=== PATIENT | female | born 1955 | race Caucasian/White ===

== ENCOUNTER → 2017-04-03 | Outpatient (REF) | payer BC | LOC: M SFHCWAGY 15:14 | PROVIDERS: ATTEND Nurse Practitioner Family | DX: Z12.4 Encounter for screening for malignant neoplasm of cervix (principal) ==

== ENCOUNTER → 2017-04-03 | Outpatient (CLI) | payer BC ==
--- NOTE | 2017-04-03 15:49 | REPMRS ---
Patient History The patient states she had a clinical breast exam in 03/2017. Patient is postmenopausal. Family history of pancreatic cancer in mother. Digital Woman Screen Mammo: April 03, 2017 - Exam #: [id number] Bilateral CC and MLO view(s) were taken. Technologist: Karena Mccarthy, Technologist Prior study comparison: February 18, 2016, digital woman screen mammo performed at [facility]. January 08, 2015, digital woman screen mammo performed at [facility] to [facility]. FINDINGS: The breast tissue is heterogeneously dense. This may lower the sensitivity of mammography. There has been no change in the appearance of the mammogram from the prior studies. There is a moderate amount of residual fibroglandular tissue which is fairly symmetric. There is no interval development of dominant mass, areas of architectural distortion, or clustered microcalcification typical of malignancy. ASSESSMENT: BI-RADS/ACR category 1 mammogram. Negative. Recommendation Routine screening mammogram in 1 year (for women over age 40). This mammogram was interpreted with the aid of an FDA-approved computer-aided dectection system. Electronically Signed By: Ildefonso Tate MD 04/03/17 [id number]
== END ==
LOC: M WHC 14:40
PROVIDERS: ATTEND Nurse Practitioner Family
DX: Z12.31 Encounter for screening mammogram for malignant neoplasm of breast (principal)

== ENCOUNTER → 2018-04-04 | Outpatient (REF) | payer OTHER ==
[2018-04-06 14:15] LABS: HPV HYBRID CAPTURE II Negative (Negative)
== END ==
LOC: M SFHCWAGY 15:40
DX: Z12.4 Encounter for screening for malignant neoplasm of cervix (principal)

== ENCOUNTER → 2018-04-04 | Outpatient (CLI) | payer OTHER | LOC: M WHC 14:59 | DX: Z12.31 Encounter for screening mammogram for malignant neoplasm of breast (principal) | CPT/HCPCS: 77067 ==

== ENCOUNTER 2019-01-24 05:46 | Day surgery (SDC) | payer BC ==
[~2019-01-24] VITALS: Ht 157.5 cm; Wt 68.5 kg
[~2019-01-24 05:46] MED LIST: LEVO112T2 PO; LISI10TA4 PO; SERT-138 PO
--- NOTE | 2019-01-24 06:41 | ECGEPIP ---
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
[2019-01-24] MEDS ORDERED: BUPIVACAINE LIPOSOME/PF 1.3% 20ML VIAL (13.3MG/ML)(EXPAREL)(C9290 PER1MG) As Ordered ONE (06:44)
[2019-01-24] MEDS ORDERED: BUPIVACAINE HCL 0.25% 30 ML VIAL As Ordered ONE (06:44)
[2019-01-24] MEDS ORDERED: LR 1,000 ML IV ONE (07:00)
[2019-01-24] MEDS ORDERED: PROPOFOL 200 MG/20 ML VIAL As Ordered ONE (08:03)
[2019-01-24] MEDS ORDERED: KETOROLAC 60 MG/2 ML VIAL (J1885) As Ordered ONE (08:03)
[2019-01-24] MEDS ORDERED: ACETAMINOPHEN 1000MG 100ML IV BTL (OFIRMEV) (J0131 PER 10MG) As Ordered ONE (08:03)
[2019-01-24] MEDS ORDERED: ROCURONIUM BROMIDE 50 MG/5 ML VIAL As Ordered ONE ×3 (08:03→10:14)
[2019-01-24] MEDS ORDERED: dexameTHASONE 4 MG/ML 1ML VIAL (J1100) As Ordered ONE (08:03)
[2019-01-24] MEDS ORDERED: LIDOCAINE 2% INJ 100 MG/5 ML SDV (FOR ANES.) As Ordered ONE (08:03)
[2019-01-24] MEDS ORDERED: MIDAZOLAM INJ 2 MG/2 ML VIAL (J2250) As Ordered ONE (08:03)
[2019-01-24] MEDS ORDERED: fentaNYL 250 MCG/5 ML INJECTION (J3010) As Ordered ONE (08:03)
[2019-01-24] MEDS ORDERED: ONDANSETRON 4MG/2ML VIAL (J2405) As Ordered ONE (08:03)
[2019-01-24] MEDS ORDERED: ePHEDrine SULFATE 25 MG/5 ML(5MG/ML) SYRINGE As Ordered ONE (08:04)
[2019-01-24] MEDS ORDERED: LABETALOL HCL 100 MG/20 ML VIAL As Ordered ONE (08:42)
[2019-01-24] MEDS ORDERED: SUGAMMADEX SODIUM 500 MG/5 ML VIAL (BRIDION) As Ordered ONE (08:56)
[2019-01-24] MEDS: oxyCODONE 5MG TAB PO PRN ×2 (11:15→11:58)
[2019-01-24] MEDS ORDERED: ACETAMINOPHEN TAB 650MG DOSE (2X325MG) PO PRN (11:15)
[2019-01-24] MEDS ORDERED: METOCLOPRAMIDE INJ 10MG/2ML VIAL (J2765) IV PRN (11:15)
[2019-01-24] MEDS ORDERED: LR 1,000 ML IV SCH (11:15)
[2019-01-24] MEDS ORDERED: PROMETHAZINE INJ 25 MG/ML VIAL (J2550) IV PRN (11:15)
[2019-01-24] MEDS ORDERED: IBUPROFEN 600 MG TAB PO PRN (11:30)
[2019-01-24] MEDS: fentaNYL 100 MCG/2 ML INJECTION (J3010) IV PRN ×4 (11:35→11:50)
[2019-01-24 13:50] VITALS: BP 120/58
[2019-01-24] MEDS ORDERED: OXYC1TAB23 PO (15:06)
--- NOTE | 2019-01-26 14:12 | RO ---
DATE OF PROCEDURE: 01/24/2019 PREOPERATIVE DIAGNOSIS: Epigastric incisional hernia. POSTOPERATIVE DIAGNOSES: 1. Epigastric incisional hernia. 2. Umbilical hernia. PROCEDURES PERFORMED: 1. Robotic-assisted laparoscopic repair of epigastric incisional hernia. 2. Robotic-assisted laparoscopic suturing of small umbilical hernia defect. SURGEON: Dr. Dhillon ANESTHESIA: General. INDICATIONS FOR PROCEDURE: The patient is a 63-year-old woman who had undergone an open cholecystectomy many years ago through a short transverse epigastric. She has recently noticed a bulge in this area and examination confirmed protrusion along her scar. She is now for a robotic-assisted laparoscopic incisional hernia repair. OPERATIVE PROCEDURE The patient was brought to the operating room and placed supine on the operating table. She was placed under general endotracheal anesthesia. The patient's abdomen was prepped and draped in a sterile fashion. The initial entry into the abdomen was in the left upper quadrant. Local anesthesia was infiltrated and a short incision was made. A Veress needle was inserted and after positive hanging drop test the abdomen was insufflated with carbon dioxide gas. The 8 mm robotic trocar was inserted through the abdominal wall without difficulty. The laparoscope was placed. Initial examination showed some filmy adhesions of the omentum to the anterior abdominal wall beginning near the umbilicus and extending up along the midline to attach to the falciform ligament. The liver was partially seen and appeared normal. Visualized portions of the small and large bowel and stomach appeared normal. A second trocar was placed in the lateral midabdomen on the left and a third trocar was placed in the left lower quadrant. Patient cart was then docked from the patients right and the camera port was docked. Targeting took place on the epigastric area and a pair of cauterizing scissors was placed in arm four and arm two contained a bipolar cautery device. I then moved to the control console to proceed with the robotic portion of the procedure. The patient had previously been placed into a reverse Trendelenburg position and rolled slightly to the right. Proceeding robotically, the adhesions of the omentum to the anterior abdominal wall were taken down. As the umbilical area was exposed, two very small fascial defects, big enough to put the tip of the grasper into were identified at the umbilicus. Inspection in the epigastrium identified that there was a definite small fascial defect at the left and of her epigastric incision through which a frond of omentum protruded to the right side. The area was obscured initially by some of the falciform in this area. I therefore proceeded to dissect the peritoneum and preperitoneal fat off of the anterior abdominal wall beginning down by the umbilicus and extending up along the entire midline to the area overlying her prior incision. As the inner aspect of her incision was exposed, not only was there a definite small defect with protruding fat on the left, there was a more broad separation of the internal fascia on the right creating a weakness in this area. The preperitoneal fat was peeled away widely to expose this area for placement of the piece of mesh, but the tissue remained attached to the anterior abdominal wall. A 1-0 PDS Stratafix suture was then inserted into the abdomen and the fascia along her hernia was closed. I started at the point of her more distinct small fascial defect and then worked to the right suturing the separation of the fascia. Once this closure was completed, the suture was cut and the needle removed. A 9-cm round Parietex patch was selected for the mesh reinforcement. This was trimmed on both sides to create an approximately 6 x 9 cm patch, which was inserted. A 2-0 V-Loc suture was used. Initially the midpoint of the mesh was tacked over the closure of the fascia and this was then carried to the lateral aspect of the mesh and then continued as a continuous running circumferential suture at the edge of the mesh. I would note that the intra-abdominal pressure had been reduced to 8 mmHg when the hernia repair was begun. Once the mesh was sutured circumferentially, the suture was continued to reattach the preperitoneal fat of the falciform ligament over the mesh and carrying this up superiorly to suture the superior half of the preperitoneal fat in place. A 0 V-Loc suture was then inserted and this was used to take several bites through the small umbilical hernias to close these together and then was continued to reattach the preperitoneal fat over this area and then extending up to complete the closure of preperitoneal fat. Inspection showed no evidence of any bleeding. The robot was then undocked. The patient was returned to a flat position and the abdomen was deflated and the trocars were removed. The trocar sites were closed with buried Vicryl sutures and Steri-Strips. The patient tolerated the procedure well without apparent complication. The Parietex patch selected was a 9-cm round Parietex lot number [id number]. The patient was awakened in the operating room, extubated and moved to the recovery room in stable condition.
== END 2019-01-24 14:20 | disposition home or self-care (01) ==
LOC: M SDC 05:46
PROVIDERS: ATTEND Surgery
DX: K43.2 Incisional hernia without obstruction or gangrene (principal); K42.9 Umbilical hernia without obstruction or gangrene; I10 Essential (primary) hypertension; E03.9 Hypothyroidism, unspecified; F41.9 Anxiety disorder, unspecified; Z79.899 Other long term (current) drug therapy; Z87.891 Personal history of nicotine dependence; Z88.2 Allergy status to sulfonamides; Z88.0 Allergy status to penicillin
CPT/HCPCS: 49652; 93005; C1781; C9290; J0131; J1100; J1885; J2250; J2405; J3010

== ENCOUNTER → 2019-04-19 | Outpatient (CLI) | payer BC ==
[~2019-04-19] MED LIST changes: +OXYC1TAB23 PO
--- NOTE | 2019-04-19 14:42 | REPMRS ---
Patient History The patient states she had a clinical breast exam in 04/2019. Patient is postmenopausal. Family history of pancreatic cancer in mother. No Hormone Replacement Therapy 3D TOMOSYNTHESIS WAS PERFORMED. The [facility] lifetime risk for breast cancer is 6.6 %. Digital Woman Screen Mammo: April 19, 2019 - Exam #: [id number] Bilateral CC and MLO view(s) were taken. Technologist: Karena Mccarthy, Technologist Prior study comparison: April 04, 2018, bilateral digital woman screen mammo performed at [facility]. April 03, 2017, digital woman screen mammo performed at [facility]. FINDINGS: The breast tissue is heterogeneously dense. This may lower the sensitivity of mammography. There has been no change in the appearance of the mammogram from the prior studies. There is a moderate amount of residual fibroglandular tissue which is fairly symmetric. There is no interval development of dominant mass, areas of architectural distortion, or clustered microcalcification typical of malignancy. Assessment: BI-RADS/ACR category 1 mammogram. Negative Mammogram. Recommendation Routine screening mammogram in 1 year (for women over age 40). This mammogram was interpreted with the aid of an FDA-approved computer-aided dectection system. Electronically Signed By: Ildefonso Tate MD 04/19/19 [id number]
== END ==
LOC: M WHC 13:20
PROVIDERS: ATTEND Nurse Practitioner Family
DX: Z12.31 Encounter for screening mammogram for malignant neoplasm of breast (principal); Z78.0 Asymptomatic menopausal state

== ENCOUNTER 2019-05-13 13:19 | Emergency (ER) | payer OTHER, BC ==
[~2019-05-13] VITALS: Ht 157.5 cm; Wt 68.2 kg
--- NOTE | 2019-05-13 14:17 | REP ---
CT cervical spine: 05/13/2019. Indication: Cervical spine trauma. Comparison: None. Technique: Unenhanced axial CT images of the cervical spine were performed with coronal and sagittal reconstructions provided. Findings: There is no acute fracture, subluxation or dislocation. The visualized lungs are clear. The airway is patent. No acute post traumatic neck soft tissue abnormalities are detected. Impression: No acute post traumatic osseous injuries of the cervical spine. Electronically Signed by Sushant Pleitez DO 05/13/2019 02:08 P
[2019-05-13] MEDS ORDERED: NAPR-837 PO (15:28)
[2019-05-13] MEDS ORDERED: METH1TAB40 PO (15:28)
[2019-05-13 15:33] VITALS: BP 163/81
== END 2019-05-13 15:39 | disposition home or self-care (01) ==
LOC: M ED 13:19
DX: Z04.1 Encounter for examination and observation following transport accident (principal); S16.1XXA Strain of muscle, fascia and tendon at neck level, initial encounter; V43.52XA Car driver injured in collision with other type car in traffic accident, initial encounter; Y92.410 Unspecified street and highway as the place of occurrence of the external cause; Y93.89 Activity, other specified; Y99.8 Other external cause status; I10 Essential (primary) hypertension; E03.9 Hypothyroidism, unspecified; Z79.899 Other long term (current) drug therapy; Z79.890 Hormone replacement therapy; Z88.0 Allergy status to penicillin; Z88.2 Allergy status to sulfonamides

== ENCOUNTER → 2020-04-21 | Outpatient (REF) | payer BC ==
[~2020-04-21] MED LIST changes: +METH1TAB40 PO; +NAPR-837 PO
== END ==
LOC: M SFHCWAGY 18:24
PROVIDERS: ATTEND Nurse Practitioner Family
DX: Z12.4 Encounter for screening for malignant neoplasm of cervix (principal)

== ENCOUNTER → 2020-04-21 | Outpatient (CLI) | payer BC ==
--- NOTE | 2020-04-21 14:41 | REPMRS ---
Patient History The patient states she had a clinical breast exam in April 2020.Family history of pancreatic cancer in mother. No Hormone Replacement Therapy 3D TOMOSYNTHESIS WAS PERFORMED. [facility]%. YENSHABANAGlenn STEVE Dominick. Digital Woman Screen Mammo: April 21, 2020 - Exam #: [id number] Bilateral CC and MLO view(s) were taken. Technologist: Karly Lucero, Technologist Prior study comparison: April 19, 2019, bilateral digital woman screen mammo performed at [facility]. April 04, 2018, bilateral digital woman screen mammo performed at [facility]. FINDINGS: The breast tissue is heterogeneously dense. This may lower the sensitivity of mammography. There has been no change in the appearance of the mammogram from the prior studies. There is a moderate amount of residual fibroglandular tissue which is fairly symmetric. There is no interval development of dominant mass, areas of architectural distortion, or clustered microcalcification typical of malignancy. Assessment: BI-RADS/ACR category 1 mammogram. Negative Mammogram. Recommendation Routine screening mammogram in 1 year (for women over age 40). This mammogram was interpreted with the aid of an FDA-approved computer-aided dectection system. Electronically Signed By: Ildefonso Tate MD 04/21/20 [id number]
== END ==
LOC: M WHC 13:11
PROVIDERS: ATTEND Nurse Practitioner Family
DX: Z12.31 Encounter for screening mammogram for malignant neoplasm of breast (principal)

== ENCOUNTER → 2020-05-02 | Outpatient (CLI) | payer BC | LOC: M LABSMTC 11:40 | PROVIDERS: ATTEND Anesthesiology | DX: Z01.812 Encounter for preprocedural laboratory examination (principal); Z20.828 Contact with and (suspected) exposure to other viral communicable diseases | CPT/HCPCS: C9803; U0003 ==

== ENCOUNTER 2020-05-07 13:08 | Day surgery (SDC) | payer BC ==
[~2020-05-07] VITALS: Ht 157.5 cm; Wt 67.0 kg
[~2020-05-07 13:08] MED LIST changes: +NS 1,000 ML IV ONE
[2020-05-07] MEDS ORDERED: propofoL 200 MG/20 ML VIAL As Ordered ONE (14:27)
[2020-05-07] MEDS ORDERED: LIDOCAINE 2% 100MG/5ML SDV (FOR ANES.) As Ordered ONE (14:38)
[2020-05-07] MEDS ORDERED: GLYCOPYRROLATE INJ 0.2 MG/ML 2 ML VIAL As Ordered ONE (14:43)
--- NOTE | 2020-05-07 15:01 | ROOR ---
Patient Name: Jennifer Tierney Procedure Date: 05/07/2020 2:30 PM Date of : 1955 Age: 64 Room: [facility] Gender: Female Note Status: Finalized Procedure: Colonoscopy Indications: Screening for colorectal malignant neoplasm, Last colonoscopy: October 2007 Providers: Molina Dhillon MD Referring MD: Dante Fermin MD Requesting Provider: Medicines: Monitored Anesthesia Care Complications: No immediate complications. Procedure: Pre-Anesthesia Assessment: - Prior to the procedure, a History and Physical was performed, and patient medications and allergies were reviewed. The patient is competent. The risks and benefits of the procedure and the sedation options and risks were discussed with the patient. All questions were answered and informed consent was obtained. Patient identification and proposed procedure were verified by the physician, the nurse and the admissions nurse in the procedure room. Mental Status Examination: alert and oriented. Airway Examination: normal oropharyngeal airway and neck mobility. CV Examination: regular rate and rhythm. Prophylactic Antibiotics: The patient does not require prophylactic antibiotics. Prior Anticoagulants: The patient has taken no previous anticoagulant or antiplatelet agents. ASA Grade Assessment: II - A patient with mild systemic disease. After reviewing the risks and benefits, the patient was deemed in satisfactory condition to undergo the procedure. The anesthesia plan was to use monitored anesthesia care (MAC). Immediately prior to administration of medications, the patient was re-assessed for adequacy to receive sedatives. The heart rate, respiratory rate, oxygen saturations, blood pressure, adequacy of pulmonary ventilation, and response to care were monitored throughout the procedure. The physical status of the patient was re-assessed after the procedure. The Colonoscope was introduced through the anus and advanced to the cecum, identified by appendiceal orifice and ileocecal valve. The colonoscopy was somewhat difficult due to significant looping. Successful completion of the procedure was aided by applying abdominal pressure. The patient tolerated the procedure well. The quality of the bowel preparation was excellent. Findings: The perianal and digital rectal examinations were normal. Multiple medium-mouthed diverticula were found in the sigmoid colon and descending colon. The exam was otherwise without abnormality. Impression: - Diverticulosis in the sigmoid colon and in the descending colon. - The examination was otherwise normal. - No specimens collected. Recommendation: - Discharge patient to home. - Resume previous diet. - Continue present medications. - Repeat colonoscopy in 10 years for surveillance. Molina Dhillon MD Molina Dhillon MD 05/07/2020 3:01:27 PM Electronically signed by Molina Dhillon MD Number of Addenda: 0 Note Initiated On: 05/07/2020 2:30 PM Estimated Blood Loss: Estimated blood loss: none.
[2020-05-07 15:16] VITALS: BP 119/55
== END 2020-05-07 15:17 | disposition home or self-care (01) ==
LOC: M OPP 13:08
PROVIDERS: ATTEND Surgery
DX: Z12.11 Encounter for screening for malignant neoplasm of colon (principal); K57.90 Diverticulosis of intestine, part unspecified, without perforation or abscess without bleeding